=== PATIENT | female | born 1985 | race Caucasian/White ===

== ENCOUNTER 2022-03-06 10:21 | Emergency (ER) | payer BC ==
[~2022-03-06] VITALS: Ht 167.6 cm; Wt 81.6 kg
--- NOTE | 2022-03-06 10:39 | NUR ---
TO ER BED 13. BIBS C/O FLU-LIKE SYMPTOMS, WEAKNESS, AND DIZZINESS FOR A COUPLE DAYS, AFEBRILE. PT ATTCHED TO MONITOR, VITALS ARE WITHIN NORMAL LIMITS. AWAITING MD ORDERS.
--- NOTE | 2022-03-06 11:26 | NUR ---
IV ESTABLISHED R UA 20G. LABS DRAWN AND COLLECTED.
[2022-03-06] MEDS ORDERED: IV NS 0.9% 1,000 ML BAG IV ONE (11:30)
[2022-03-06 11:32] LABS: BASOPHILS # (AUTO) 0.1 K/uL (0.0-0.2); BASOPHILS % (AUTO) 1.3 % (0.0-2.0); EOSINOPHILS % (AUTO) 2.5 % (0.0-6.0); HEMATOCRIT 35 % (33-45); HEMOGLOBIN 11.2 g/dL (11.5-14.8); LYMPHOCYTES # (AUTO) 1.4 K/uL (0.8-4.8); LYMPHOCYTES % (AUTO) 24.7 % (20.0-44.0); MEAN CORPUSCULAR HGB CONC 32 g/dl (31.0-36.0); MEAN CORPUSCULAR VOLUME 75 fL (82-100); MONOCYTES # (AUTO) 0.4 K/uL (0.1-1.30); MONOCYTES % (AUTO) 6.9 % (2.0-12.0); NEUTROPHILS # (AUTO) 3.6 K/uL (1.8-8.9); NEUTROPHILS % (AUTO) 64.6 % (43.0-81.0); PLATELET COUNT (AUTO) 219 K/uL (150-450); WHITE BLOOD COUNT (AUTO) 5.5 K/uL (4.3-11.0)
--- NOTE | 2022-03-06 11:33 | NUR ---
RAPID COVID RAPID FLU COLLECTED AND SENT
[2022-03-06 12:56] LABS: ALBUMIN 3.8 g/dL (3.4-5.0); BILIRUBIN,DIRECT 0.1 mg/dL (0.0-0.2); BILIRUBIN,TOTAL 0.2 mg/dL (0.2-1.0); CALCIUM, SERUM 8.8 mg/dL (8.5-10.1); CREATININE 0.8 mg/dL (0.6-1.3); POTASSIUM 3.9 mmol/L (3.5-5.1)
[2022-03-06 15:45] VITALS: BP 110/69
--- NOTE | 2022-03-06 15:45 | NUR ---
Pt states "feel better" Updated by MD Patient discharged to home in stable condition. Written and verbal after care instructions given. Patient verbalizes understanding of instruction.
== END 2022-03-06 15:46 | disposition home or self-care (01) ==
LOC: ER 10:24
DX: B34.9 Viral infection, unspecified (principal); R55 Syncope and collapse; Z20.822 Contact with and (suspected) exposure to COVID-19
CPT/HCPCS: 99285; 96360; 71045; 87426; 93005; 87804; 85025; 80048; 83690; 80076; 36415; J7030; C9803

== ENCOUNTER 2022-07-17 07:59 | Emergency (ER) | payer BC, OTHER ==
[~2022-07-17] VITALS: Ht 170.2 cm; Wt 81.6 kg
[2022-07-17 09:40] LABS: BASOPHILS # (AUTO) 0.1 K/uL (0.0-0.2); BASOPHILS % (AUTO) 0.7 % (0.0-2.0); EOSINOPHILS % (AUTO) 1.5 % (0.0-6.0); HEMATOCRIT 34 % (33-45); HEMOGLOBIN 11.1 g/dL (11.5-14.8); LYMPHOCYTES # (AUTO) 1.4 K/uL (0.8-4.8); LYMPHOCYTES % (AUTO) 11.9 % (20.0-44.0); MEAN CORPUSCULAR HGB CONC 32 g/dl (31.0-36.0); MEAN CORPUSCULAR VOLUME 73 fL (82-100); MONOCYTES # (AUTO) 0.6 K/uL (0.1-1.30); MONOCYTES % (AUTO) 5.3 % (2.0-12.0); NEUTROPHILS # (AUTO) 9.5 K/uL (1.8-8.9); NEUTROPHILS % (AUTO) 80.6 % (43.0-81.0); PLATELET COUNT (AUTO) 211 K/uL (150-450); RED BLOOD CELL COUNT(AUTO) 4.71 MIL/uL (4.0-5.2); WHITE BLOOD COUNT (AUTO) 11.7 K/uL (4.3-11.0)
[2022-07-17 10:07] LABS: CALCIUM, SERUM 8.7 mg/dL (8.5-10.1); CARBON DIOXIDE 27 mmol/L (21-32); CHLORIDE 105 mmol/L (98-107); CREATININE 0.9 mg/dL (0.6-1.3); GLUCOSE 88 mg/dL (74-106); POTASSIUM 3.8 mmol/L (3.5-5.1); SODIUM SERUM 140 mmol/L (136-145); UREA NITROGEN, BLOOD 23 mg/dL (7-18)
[2022-07-17] MEDS ORDERED: PSEU120T57 PO (11:14)
[2022-07-17] MEDS ORDERED: IBUP-1957 PO (11:14)
[2022-07-17] MEDS ORDERED: BENZ-13 PO (11:14)
[2022-07-17] MEDS ORDERED: NAPROXEN 250 MG TABLET ONE (11:24)
[2022-07-17] MEDS ORDERED: NAPROXEN 250 MG TABLET PO ONE (11:30)
[2022-07-17 11:42] VITALS: BP 118/85
== END 2022-07-17 11:43 | disposition home or self-care (01) ==
LOC: ER 08:14
DX: J40 Bronchitis, not specified as acute or chronic (principal); R07.9 Chest pain, unspecified; R05.9 Cough, unspecified
CPT/HCPCS: 36415; 71045-TC; 80048-TC; 84484-TC; 85025-TC

== ENCOUNTER 2022-09-19 08:37 | Emergency (ER) | payer BC, OTHER ==
[~2022-09-19] VITALS: Ht 170.2 cm; Wt 74.4 kg
[~2022-09-19 08:37] MED LIST: BENZ-13 PO; IBUP-1957 PO; PSEU120T57 PO
--- NOTE | 2022-09-19 08:50 | NUR ---
C/O RIGHT FLANK PAIN WITH POLYURIA X 3 DAYS. DENIES HEMATURIA. 01/13 PAIN
--- NOTE | 2022-09-19 09:11 | NUR ---
IV LINE LEFT A 20 ,
--- NOTE | 2022-09-19 09:11 | NUR ---
BLOOD / URINE SAMPLE OBTAINED SENT TO LAB
[2022-09-19] MEDS: IV NS 0.9% 1,000 ML BAG IV ONE (09:45)
[2022-09-19 09:52] LABS: BASOPHILS # (AUTO) 0.1 K/uL (0.0-0.2); BASOPHILS % (AUTO) 1.3 % (0.0-2.0); HEMATOCRIT 39 % (33-45); HEMOGLOBIN 12.4 g/dL (11.5-14.8); LYMPHOCYTES # (AUTO) 1.4 K/uL (0.8-4.8); LYMPHOCYTES % (AUTO) 22.3 % (20.0-44.0); MEAN CORPUSCULAR HGB CONC 32 g/dl (31.0-36.0); MEAN CORPUSCULAR VOLUME 75 fL (82-100); MONOCYTES # (AUTO) 0.4 K/uL (0.1-1.30); MONOCYTES % (AUTO) 5.5 % (2.0-12.0); NEUTROPHILS # (AUTO) 4.4 K/uL (1.8-8.9); NEUTROPHILS % (AUTO) 68.9 % (43.0-81.0); PLATELET COUNT (AUTO) 221 K/uL (150-450); RED BLOOD CELL COUNT(AUTO) 5.18 MIL/uL (4.0-5.2); WHITE BLOOD COUNT (AUTO) 6.4 K/uL (4.3-11.0)
[2022-09-19 10:06] LABS: BILIRUBIN,URINE NEGATIVE (NEGATIVE); COLOR,URINE YELLOW (YELLOW); LEUKOCYTE ESTERASE ,URINE NEGATIVE (NEGATIVE); NITRITE, URINE NEGATIVE (NEGATIVE); PROTEIN,URINE NEGATIVE (NEGATIVE); UGLUCOSE NEGATIVE (NEGATIVE); UROBILINOGEN,URINE 0.2 EU/dL (0.2)
[2022-09-19 10:07] LABS: BACTERIA,URINE Rare /HPF (None Seen); SQUAMOUS EPITHELIAL CELL,UR Few /HPF (None Seen); WBC,URINE 0-2 /HPF (0-3)
[2022-09-19 10:12] LABS: CALCIUM, SERUM 9.2 mg/dL (8.5-10.1); CREATININE 0.8 mg/dL (0.6-1.3); POTASSIUM 3.7 mmol/L (3.5-5.1)
[2022-09-19] MEDS: KETOROLAC TROMETHAMINE INJ 30 MG/ML VIAL IV ONE (10:35)
[2022-09-19] MEDS ORDERED: KETOROLAC TROMETHAMINE 15 MG/ML VIAL ONE (10:35)
[2022-09-19] MEDS ORDERED: KETO10TA2 PO (11:25)
--- NOTE | 2022-09-19 12:07 | NUR ---
Patient discharged to home in stable condition. Written and verbal after care instructions given. Patient verbalizes understanding of instruction.
--- NOTE | 2022-09-19 12:07 | NUR ---
IV removed. Catheter intact and site benign. Pressure and 4x4 applied to site. No bleeding noted.
[2022-09-19 12:08] VITALS: BP 101/71; TEMP 98.2
== END 2022-09-19 12:08 | disposition home or self-care (01) ==
LOC: ER 08:50
DX: R10.9 Unspecified abdominal pain (principal); Z98.890 Other specified postprocedural states; Z79.899 Other long term (current) drug therapy
CPT/HCPCS: 99285; 74176; 96374; 96361; 85025; 80048; 84703; 81001; 36415; J7030; J1885